=== PATIENT | female | born 1950 | race Caucasian/White ===

== ENCOUNTER 2023-03-02 12:14 | Outpatient (CLI) | payer OTHER | END 2023-03-02 12:15 | disposition home or self-care (01) | LOC: CSHRAD 12:14 | PROVIDERS: ATTEND Surgery | DX: R09.89 Other specified symptoms and signs involving the circulatory and respiratory systems (principal); M47.26 Other spondylosis with radiculopathy, lumbar region; Z98.890 Other specified postprocedural states | CPT/HCPCS: 71045; 72100 ==

== ENCOUNTER 2023-03-21 13:27 | Outpatient (CLI) | payer OTHER | END 2023-03-21 13:28 | disposition home or self-care (01) | LOC: CSHWCC 13:27 | PROVIDERS: ATTEND Physician Assistant | DX: T81.32XD Disruption of internal operation (surgical) wound, not elsewhere classified, subsequent encounter (principal) | CPT/HCPCS: 97597; G0463; 99213 ==

== ENCOUNTER 2023-03-29 10:19 | Outpatient (CLI) | payer OTHER | END 2023-03-29 10:20 | disposition home or self-care (01) | LOC: CSHWCC 10:19 | PROVIDERS: ATTEND Preventive Medicine Undersea and Hyperbaric Medicine | DX: T81.32XD Disruption of internal operation (surgical) wound, not elsewhere classified, subsequent encounter (principal) | CPT/HCPCS: 11042; 97605 ==